=== PATIENT | female | born 1970 | race Hispanic/Latino ===

== ENCOUNTER 2019-06-28 14:40 | Emergency (ER) | payer OTHER ==
[2019-06-28] MEDS ORDERED: MECLIZINE HCL 25 MG TABLET ONE (16:26)
== END 2019-06-28 18:06 | disposition home or self-care (01) ==
LOC: EDH 14:40
DX: H81.10 Benign paroxysmal vertigo, unspecified ear (principal); J02.9 Acute pharyngitis, unspecified; R11.0 Nausea
CPT/HCPCS: 87804; 87880